=== PATIENT | female | born 1935 ===

== ENCOUNTER → 2017-05-08 | Day surgery (SDC) | payer OTHER ==
[~2017-05-08] MED LIST: ASA81 MG; COZAAR25 MG; NEURONTIN600 MG; PRILOSEC OTC20 MG
== END | disposition home or self-care (01) ==
LOC: ADM 05-03 13:00 → AMB-ENDOS 09:32 → CIR.AMB 13:00
DX: D12.2 Benign neoplasm of ascending colon (principal); K57.30 Diverticulosis of large intestine without perforation or abscess without bleeding; D12.5 Benign neoplasm of sigmoid colon; D12.8 Benign neoplasm of rectum